=== PATIENT | male | born 1985 | race Asian ===

== ENCOUNTER 2019-01-06 02:25 | Emergency (ER) | payer BC, OTHER ==
[~2019-01-06] VITALS: Ht 167.6 cm; Wt 59.1 kg
[2019-01-06 05:03] VITALS: BP 119/81
[2019-01-06] MEDS ORDERED: TETanus/Pertussis (Acell)/Diphther VAC/PF (Tdap-Adult) 0.5ml syringe IM ONE (05:05)
[2019-01-06] MEDS ORDERED: bacitracin 15gm ointment TP ONE (05:05)
== END 2019-01-06 05:52 ==
LOC: ER 02:26
DX: S50.02XA Contusion of left elbow, initial encounter (principal); F10.920 Alcohol use, unspecified with intoxication, uncomplicated; F17.200 Nicotine dependence, unspecified, uncomplicated; V49.69XA Unspecified car occupant injured in collision with other motor vehicles in traffic accident, initial encounter; Y93.89 Activity, other specified; Y92.488 Other paved roadways as the place of occurrence of the external cause; Y99.8 Other external cause status
CPT/HCPCS: 90471; 99283